=== PATIENT | male | born 1955 | race Caucasian/White ===

== ENCOUNTER 2017-04-21 18:36 | Observation (INO) | payer SELFPAY ==
[2017-04-21] VITALS (7 sets, daily range): BP systolic 135–152; BP diastolic 75–92; PULSE 54–76; RESP 16–18; TEMP 98.2–98.8; O2SAT 90–99
[~2017-04-21] VITALS: Ht 175.3 cm; Wt 80.0 kg
[2017-04-21] MEDS ORDERED: SODIUM CHLOR 0.9% 1000 ML INJ 1,000 ML IV ONE (18:49)
[2017-04-21] MEDS ORDERED: AMLO5 PO (18:55)
[2017-04-21] MEDS ORDERED: ONDANSETRON HCL 4 MG/2 ML VIAL IVP ONE (19:00)
[2017-04-21] MEDS: SODIUM CHLORIDE 0.9% FLUSH 10 ML FLUSH IVF PRN ×2 (19:14→21:17)
--- NOTE | 2017-04-21 19:28 | PD ---
HPI Chief Complaint: Altered Mental Status Time Seen by Provider: 18:48 Travel History International Travel<30 days: No Contact w/Intl Traveler<30days: No Traveled to known affect area: No History of Present Illness HPI 61-year-old male from [place], brought in by EMS status post episode of unresponsiveness with hypoxia. Patient is currently in the process of bringing large vessel from [facility] with a couple of his friends. It is reported that he flew down from [place] 2 days ago and has been going ever since trying to get the boat [place] of the on[place]. Patient required 3 doses of 0.4 mg Narcan 2 bringing him back. It was noted that he had O2 sats in the 80s upon EMS arrival at the scene. Patient now satting well, is arousable and alert and oriented. He is complaining of no pain or shortness of breath. Patient does admit to using cocaine. It is questionable whether he has been using any type of narcotic. Patient takes lisinopril for hypertension. He also is reported to take an anti-inflammatory for his left shoulder, according to his friends. He has no known drug allergies. [facility] Past Medical History Cardiovascular Problems: Yes (HTN) Diminished Hearing: No Hypertension: Yes Immunizations Current: No Tetanus Vaccination: Unknown Influenza Vaccination: No Past Surgical History Surgical History: No Previous Surgery Social History Alcohol Use: Yes Tobacco Use: No Substance Use: Yes (COCCAINE ) Allergies-Medications (Allergen,Severity, Reaction): Coded Allergies: No Known Allergies (Unverified , 04/21/17) Reported Meds & Prescriptions Reported Meds & Active Scripts Active Reported Norvasc (Amlodipine Besylate) 5 Mg Tab 5 Mg PO DAILY Review of Systems ROS Limitations: Altered Mental Status Except as stated in HPI: all other systems reviewed are Neg General / Constitutional: No: Fever Eyes: No: Visual changes HENT: No: Headaches Cardiovascular: No: Chest Pain or Discomfort Respiratory: No: Shortness of Breath Gastrointestinal: No: Nausea, Vomiting, Abdominal Pain Genitourinary: No: Dysuria Musculoskeletal: No: Pain Skin: No Rash Neurologic: No: Weakness Psychiatric: No: Depression Endocrine: No: Polydipsia Hematologic/Lymphatic: No: Easy Bruising Physical Exam Narrative GENERAL: Patient appears somewhat obtunded but arousable to verbal stimuli. Answers questions appropriately. He appears in no obvious distress. SKIN: Warm and dry. Normal color. Normal turgor. No diaphoresis. HEAD: Atraumatic. Normocephalic. EYES: Pupils equal and round. No scleral icterus. No injection or drainage. ENT: No nasal bleeding or discharge. Mucous membranes pink and moist. Pharynx is clear. Airway is patent. NECK: Trachea midline. Supple and nontender. CARDIOVASCULAR: Regular rate and rhythm. No murmurs gallops or rubs appreciated. RESPIRATORY: No accessory muscle use. Clear to auscultation. Breath sounds equal bilaterally. GASTROINTESTINAL: Abdomen soft, non-tender, nondistended. Hepatic and splenic margins not palpable. MUSCULOSKELETAL: Extremities without clubbing, cyanosis, or edema. No obvious deformities. NEUROLOGICAL: Awake and alert. No obvious cranial nerve deficits. Motor grossly within normal limits. Five out of 5 muscle strength in the arms and legs. Normal speech. PSYCHIATRIC: Appropriate mood and affect; insight and judgment normal. Data Data Last Documented VS Vital Signs Date Time Temp Pulse Resp B/P (MAP) Pulse Ox O2 Delivery O2 Flow Rate FiO2 04/21/17 20:39 95 Nasal Cannula 4.00 04/21/17 20:37 04/21/17 19:45 74 16 04/21/17 18:46 98.2 Orders Orders Electrocardiogram (04/21/17 18:49) Complete Blood Count With Diff (04/21/17 18:49) Comprehensive Metabolic Panel (04/21/17 18:49) Prothrombin Time / Inr (Pt) (04/21/17 18:49) Act Partial Throm Time (Ptt) (04/21/17 18:49) Osmolality,Serum (04/21/17 18:49) Urinalysis - C+S If Indicated (04/21/17 18:49) Chest, Single Ap (04/21/17 18:49) Ct Brain W/O Iv Contrast(Rout) (04/21/17 18:49) Iv Access Insert/Monitor (04/21/17 18:49) Cath For Specimen (04/21/17 18:49) Ecg Monitoring (04/21/17 18:49) Oximetry (04/21/17 18:49) Oxygen Administration (04/21/17 18:49) Ondansetron Inj (Zofran Inj) (04/21/17 19:00) Sodium Chloride 0.9% Flush (Ns Flush) (04/21/17 19:00) Sodium Chlor 0.9% 1000 Ml Inj (Ns 1000 M (04/21/17 18:49) Drug Screen, Random Urine (04/21/17 18:49) Alcohol (Ethanol) (04/21/17 18:49) Salicylates (Aspirin) (04/21/17 18:49) Tylenol (Acetaminophen) (04/21/17 18:49) Magnesium (Mg) (04/21/17 18:49) Ckmb (Isoenzyme) Profile (04/21/17 18:49) Troponin I (04/21/17 18:49) CKMB (04/21/17 19:33) CKMB% (04/21/17 19:33) Potassium Chlor 20 Meq Premix (Kcl 20 Me (04/21/17 20:30) Labs Laboratory Tests Test 04/21/17 19:33 04/21/17 20:00 White Blood Count 5.8 TH/MM3 Red Blood Count 4.53 MIL/MM3 Hemoglobin 14.7 GM/DL Hematocrit 42.8 % Mean Corpuscular Volume 94.4 FL Mean Corpuscular Hemoglobin 32.5 PG Mean Corpuscular Hemoglobin Concent 34.5 % Red Cell Distribution Width 12.4 % Platelet Count 246 TH/MM3 Mean Platelet Volume 6.7 FL Neutrophils (%) (Auto) 56.3 % Lymphocytes (%) (Auto) 31.3 % Monocytes (%) (Auto) 10.4 % Eosinophils (%) (Auto) 1.2 % Basophils (%) (Auto) 0.8 % Neutrophils # (Auto) 3.2 TH/MM3 Lymphocytes # (Auto) 1.8 TH/MM3 Monocytes # (Auto) 0.6 TH/MM3 Eosinophils # (Auto) 0.1 TH/MM3 Basophils # (Auto) 0.0 TH/MM3 CBC Comment DIFF FINAL Differential Comment Prothrombin Time 10.6 SEC Prothromb Time International Ratio 1.0 RATIO Activated Partial Thromboplast Time 24.7 SEC Blood Urea Nitrogen 12 MG/DL Creatinine 1.02 MG/DL Random Glucose 128 MG/DL Total Protein 7.0 GM/DL Albumin 4.1 GM/DL Calcium Level 7.7 MG/DL Magnesium Level 2.0 MG/DL Alkaline Phosphatase 55 U/L Aspartate Amino Transf (AST/SGOT) 28 U/L Alanine Aminotransferase (ALT/SGPT) 37 U/L Total Bilirubin 0.5 MG/DL Sodium Level 136 MEQ/L Potassium Level 3.0 MEQ/L Chloride Level 103 MEQ/L Carbon Dioxide Level 22.8 MEQ/L Anion Gap 10 MEQ/L Estimat Glomerular Filtration Rate 74 ML/MIN Serum Osmolality 331 MOSM/KG Total Creatine Kinase 190 U/L Creatine Kinase MB 1.6 NG/ML Troponin I LESS THAN 0.02 NG/ML Salicylates Level LESS THAN 1.7 MG/DL Acetaminophen Level LESS THAN 2.0 MCG/ML Ethyl Alcohol Level 184 MG/DL Urine Color LIGHT-YELLOW Urine Turbidity CLEAR Urine pH 5.5 Urine Specific [place] 1.009 Urine Protein NEG mg/dL Urine Glucose (UA) NEG mg/dL Urine Ketones NEG mg/dL Urine Occult Blood NEG Urine Nitrite NEG Urine Bilirubin NEG Urine Urobilinogen LESS THAN 2.0 MG/DL Urine Leukocyte Esterase NEG Urine RBC LESS THAN 1 /hpf Urine WBC LESS THAN 1 /hpf Urine Mucus FEW /lpf Microscopic Urinalysis Comment CULT NOT INDICATED Urine Opiates Screen NEG Urine Barbiturates Screen NEG Urine Amphetamines Screen NEG Urine Benzodiazepines Screen NEG Urine Cocaine Screen POS Urine Cannabinoids Screen NEG MDM Medical Decision Making Medical Screen Exam Complete: Yes Emergency Medical Condition: Yes Differential Diagnosis Possible narcotic overdose. Illicit drug use. Cardiac syndrome. Syncope. Electrolyte imbalance. Dehydration. Narrative Course Patient is medically stable at time of exam. EKG is performed showing a normal sinus rhythm with a prolonged QT interval of 453 ms. There are no significant ST changes noted. Labs ordered including CBC, CMP, urine drug screen, magnesium, serum osmolality , PT PTT and INR, troponin, CK-MB, serum alcohol, acetaminophen level, salicylate level, and urinalysis. Chest x-ray and CT of the brain is ordered. IV access is obtained, and the patient is given 4 mg Zofran IV as well as 1000 mL of normal saline bolus. 0.4 mg Narcan IV is ordered on a when necessary basis. CBC is unremarkable. Chemistries remarkable for potassium of 3.0, GFR 74 follow BUN creatinine are 12 and 1.02 respectively. Random glucose is 128, serum osmolality is 331, calcium is low at 7.7. First troponin is less than 0.2 with a normal CK-MB. Toxicology shows less than 1.7 salicylate, urine opiates are negative, positive for cocaine, pulse 184. Urinalysis is otherwise negative. Patient is discussed with Dr. Shaffer who feels the patient deserves admission for observation. Call was placed to the hospitalist and the patient was discussed. Dr. Eaton agreed to admit the patient to observation overnight. Diagnosis Primary Impression: Episode of unresponsiveness Additional Impression: Cocaine use Admitting Information Admitting Physician Requests: Observation Condition: Stable Orlando Vela Apr 21, 2017 19:27
--- NOTE | 2017-04-21 19:37 | RADRPT ---
EXAM DATE/TIME: 04/21/2017 19:06 [facility] COMPARISON: No previous studies available for comparison. INDICATIONS : Syncope MEDICAL HISTORY : None. SURGICAL HISTORY : None. ENCOUNTER: Initial ACUITY: 1 day PAIN SCORE: Non-responsive. LOCATION: chest FINDINGS: A single view of the chest demonstrates the lungs to be symmetrically aerated without evidence of mas s, infiltrate or effusion. Minimal atelectatic changes above the left hemidiaphragm laterally. The c ardiomediastinal contours are unremarkable. Osseous structures are intact. CONCLUSION: 1. Minimal atelectatic changes above the left hemidiaphragm laterally. 2. Otherwise, no acute cardiopulmonary process. Sameer Bhakta MD on April 21, 2017 at 19:35 Board Certified Radiologist. This report was verified electronically.
[2017-04-21 19:41] LABS: AUTOMATED NEUTROPHIL # 3.2 TH/MM3 (1.8-7.7); BASOPHIL % 0.8 % (0.0-2.0); EOSINOPHIL # 0.1 TH/MM3 (0-0.4); EOSINOPHIL % 1.2 % (0.0-4.0); HEMATOCRIT 42.8 % (39.0-51.0); HEMO FLAGS DIFF FINAL; LYMPH % 31.3 % (9.0-44.0); LYMPHOCYTE # 1.8 TH/MM3 (1.0-4.8); MEAN CELL VOLUME 94.4 FL (80.0-100.0); MEAN CORPUSCULAR HEMOGLOBIN 32.5 PG (27.0-34.0); MEAN CORPUSCULAR HGB CONC 34.5 % (32.0-36.0); MONO % 10.4 % (0.0-8.0); NEUT % 56.3 % (16.0-70.0); PLATELET COUNT 246 TH/MM3 (150-450); RED BLOOD COUNT 4.53 MIL/MM3 (4.50-5.90); RED CELL DISTRIBUTION WIDTH 12.4 % (11.6-17.2); WHITE BLOOD COUNT 5.8 TH/MM3 (4.0-11.0)
[2017-04-21 19:55] LABS: ALT (GPT) 37 U/L (12-78); ANION GAP 10 MEQ/L (5-15); AST (GOT) 28 U/L (15-37); BICARBONATE 22.8 MEQ/L (21.0-32.0); BLOOD UREA NITROGEN 12 MG/DL (7-18); CHLORIDE 103 MEQ/L (98-107); GLOMERULAR FILTRATION RATE 74 ML/MIN (>89); SODIUM (NA) 136 MEQ/L (136-145)
[2017-04-21 19:59] LABS: ALKALINE PHOSPHATASE 55 U/L (45-117); CREATINE KINASE 190 U/L (39-308); TOTAL BILIRUBIN ADULT 0.5 MG/DL (0.2-1.0)
[2017-04-21 20:06] LABS: APTT (PATIENT) 24.7 SEC (24.3-30.1); PROTHROMBIN TIME - PATIENT 10.6 SEC (9.8-11.6)
[2017-04-21 20:13] LABS: ALCOHOL 184 MG/DL (0-5)
[2017-04-21 20:16] LABS: ACETAMINOPHEN LESS THAN 2.0 MCG/ML (10.0-30.0)
[2017-04-21 20:21] LABS: BLOOD, URINE NEG (NEG); COMMENT (UR) CULT NOT INDICATED; CULTURE IF INDICATED CULT NOT INDICATED; GLUCOSE,URINE NEG (NEG); KETONE, URINE NEG (NEG); MUCUS URINE FEW /lpf (OCC); NITRITE,URINE NEG (NEG); PH, URINE 5.5 (5.0-8.5); URINE COLOR LIGHT-YELLOW (YELLW/STRAW)
[2017-04-21 20:25] LABS: CKMB 1.6 NG/ML (0.5-3.6)
[2017-04-21] MEDS ORDERED: POTASSIUM CHLOR 20 MEQ PREMIX 100 ML IV ONE (20:30)
--- NOTE | 2017-04-21 20:35 | RADRPT ---
EXAM DATE/TIME: 04/21/2017 19:59 [facility] COMPARISON: No previous studies available for comparison. INDICATIONS : Confusion with altered mental status. RADIATION DOSE: 56.35 CTDIvol (mGy) MEDICAL HISTORY : Hypertension. Coccaine abuse. SURGICAL HISTORY : None. ENCOUNTER: Initial ACUITY: 1 day PAIN SCALE: Non-responsive LOCATION: Bilateral cranial TECHNIQUE: Multiple contiguous axial images were obtained of the head. Using automated exposure control and adj ustment of the mA and/or kV according to patient size, radiation dose was kept as low as reasonably a chievable to obtain optimal diagnostic quality images. DICOM format image data is available electro nically for review and comparison. FINDINGS: CEREBRUM: The ventricles are normal for age. No evidence of midline shift, mass lesion, hemorrhage or acute in farction. No extra-axial fluid collections are seen. POSTERIOR FOSSA: The cerebellum and brainstem are intact. The 4th ventricle is midline. The cerebellopontine angle i s unremarkable. EXTRACRANIAL: The visualized portion of the orbits is intact. Mild mucoperiosteal thickening in the mid ethmoid air cells on the right SKULL: The calvaria is intact. No evidence of skull fracture. CONCLUSION: 1. Mild chronic sinusitis in the right mid-ethmoids. 2. Otherwise negative. Sameer Bhakta MD on April 21, 2017 at 20:32 Board Certified Radiologist. This report was verified electronically.
[2017-04-21] MEDS ORDERED: SODIUM CHLORIDE 0.9% FLUSH 10 ML FLUSH IV FLUSH PRN (20:45)
[2017-04-21] MEDS ORDERED: NALOXONE HCL 0.4 MG/ML AMP IV PRN (20:45)
[2017-04-21] MEDS ORDERED: SODIUM CHLORIDE 0.9% FLUSH 10 ML FLUSH IV FLUSH SCH (21:00)
[2017-04-21] MEDS ORDERED: ONDANSETRON HCL 4 MG/2 ML VIAL IV PUSH ONE (21:15)
--- NOTE | 2017-04-22 02:13 | HHI.HP ---
HPI Service [facility] Primary Care Physician Unknown Admission Diagnosis Episode Unresponsiveness/+Cocaine Diagnoses: Travel History International Travel<30 Days: No Contact w/Intl Traveler <30 Da: No Traveled to Known Affected Are: No History of Present Illness History from patient, ER physician communication, reviewed of medical records. Patient reports his last he does not remember the events. He states he missed passed out. He stated he was coming here from [facility] to move his boat away from the upcoming [place]. He states that he and his friends were driving the boat pretty much all day and night long without food or rest. He stated he did not have his breakfast. However they did drink large amount of beer and also snorted cocaine to stay awake for the return he. He stated he must have slept for about 2 hours. He states he was then sitting with his friends to go to dinner later and as he was sitting somehow he has passed out. So his friends called 911. Per ER report, as EMS came, patient was given Narcan and became awake and alert. Patient's urine toxicology did not reveal any evidence of opiates. Patient himself also denies any opiates abuse. However he cannot be sure whether his cocaine is tented with other chemicals because he buys it from the streets. Apart from the above episodes, patient denies any recent fevers/nausea/vomiting/ diarrhea/urinary burning or pain on urination. He denies any hematemesis/hematochezia/melena/hematuria. Denies any chest pain/palpitations/shortness of breath/focal weakness/syncopal episodes. He also denies any premonitory symptoms prior to today's syncopal episodes. Review of Systems Except as stated in HPI: all other systems reviewed are Neg Past Family Social History Past Medical History htn Past Surgical History left rotator cuff sx Allergies: Coded Allergies: No Known Allergies (Unverified , 04/21/17) Family History None that he knows of Social History never smoked cigarettes drink about 4-5 beers a day, but doubles on weekends cocaine, no iv drugs, adderall Physical Exam Vital Signs Vital Signs Date Time Temp Pulse Resp B/P (MAP) Pulse Ox O2 Delivery O2 Flow Rate FiO2 04/21/17 23:24 98.8 58 18 135/75 (95) 96 04/21/17 22:42 99 Nasal Cannula 4.00 04/21/17 22:23 04/21/17 21:23 54 18 136/77 (96) 95 Nasal Cannula 2.00 04/21/17 20:39 95 Nasal Cannula 4.00 04/21/17 20:37 90 Nasal Cannula 2.00 04/21/17 19:45 74 16 152/92 (112) Room Air 04/21/17 19:17 98 Nasal Cannula 2.00 04/21/17 19:17 98 Nasal Cannula 2.00 04/21/17 18:46 98.2 76 18 152/92 (112) 96 Physical Exam GENERAL: This is a well-nourished, well-developed patient, in no apparent distress. SKIN: No rashes, ecchymoses or lesions. Cool and dry. HEAD: Atraumatic. Normocephalic. No temporal or scalp tenderness. EYES. No scleral icterus. No injection or drainage. ENT: Throat without erythema, tonsillar hypertrophy or exudate. Uvula midline. Airway patent. NECK: Trachea midline. No JVD CARDIOVASCULAR: Regular rate and rhythm without murmurs, gallops, or rubs. RESPIRATORY: Clear to auscultation. Breath sounds equal bilaterally. No wheezes , rales, or rhonchi. GASTROINTESTINAL: Abdomen soft, non-tender, nondistended. No guarding. MUSCULOSKELETAL: Extremities without clubbing, cyanosis, or edema. No calf tenderness. NEUROLOGICAL: Awake and alert. Cranial nerves II through XII intact. Motor and sensory grossly within normal limits. Normal speech. Laboratory Laboratory Tests Test 04/21/17 19:33 04/21/17 20:00 White Blood Count 5.8 Red Blood Count 4.53 Hemoglobin 14.7 Hematocrit 42.8 Mean Corpuscular Volume 94.4 Mean Corpuscular Hemoglobin 32.5 Mean Corpuscular Hemoglobin Concent 34.5 Red Cell Distribution Width 12.4 Platelet Count 246 Mean Platelet Volume 6.7 Neutrophils (%) (Auto) 56.3 Lymphocytes (%) (Auto) 31.3 Monocytes (%) (Auto) 10.4 Eosinophils (%) (Auto) 1.2 Basophils (%) (Auto) 0.8 Neutrophils # (Auto) 3.2 Lymphocytes # (Auto) 1.8 Monocytes # (Auto) 0.6 Eosinophils # (Auto) 0.1 Basophils # (Auto) 0.0 CBC Comment DIFF FINAL Differential Comment Prothrombin Time 10.6 Prothromb Time International Ratio 1.0 Activated Partial Thromboplast Time 24.7 Blood Urea Nitrogen 12 Creatinine 1.02 Random Glucose 128 Total Protein 7.0 Albumin 4.1 Calcium Level 7.7 Magnesium Level 2.0 Alkaline Phosphatase 55 Aspartate Amino Transf (AST/SGOT) 28 Alanine Aminotransferase (ALT/SGPT) 37 Total Bilirubin 0.5 Sodium Level 136 Potassium Level 3.0 Chloride Level 103 Carbon Dioxide Level 22.8 Anion Gap 10 Estimat Glomerular Filtration Rate 74 Serum Osmolality 331 Total Creatine Kinase 190 Creatine Kinase MB 1.6 Troponin I LESS THAN 0.02 Salicylates Level LESS THAN 1.7 Acetaminophen Level LESS THAN 2.0 Ethyl Alcohol Level 184 Urine Color LIGHT-YELLOW Urine Turbidity CLEAR Urine pH 5.5 Urine Specific [place] 1.009 Urine Protein NEG Urine Glucose (UA) NEG Urine Ketones NEG Urine Occult Blood NEG Urine Nitrite NEG Urine Bilirubin NEG Urine Urobilinogen LESS THAN 2.0 Urine Leukocyte Esterase NEG Urine RBC LESS THAN 1 Urine WBC LESS THAN 1 Urine Mucus FEW Microscopic Urinalysis Comment CULT NOT INDICATED Urine Opiates Screen NEG Urine Barbiturates Screen NEG Urine Amphetamines Screen NEG Urine Benzodiazepines Screen NEG Urine Cocaine Screen POS Urine Cannabinoids Screen NEG Result Diagram: 04/21/17193204/21/171932 Imaging Last [address] 04/21/171848 Signed Impressions: Service Date/Time: April 19:59 - CONCLUSION: 1. Mild chronic sinusitis in the right mid-ethmoids. 2. Otherwise negative. Sameer Bhakta MD Chest X-Ray 04/21/171848 Signed Impressions: Service Date/Time: April 19:06 - CONCLUSION: 1. Minimal atelectatic changes above the left hemidiaphragm laterally. 2. Otherwise, no acute cardiopulmonary process. Sameer Bhakta MD [place] VTE Risk Assessment Caprini VTE Risk Assessment: No/Low Risk (score <= 1) Caprini Risk Assessment Model Point Value = 1 Point Value = 2 Point Value = 3 Point Value = 5 Age 41-60 Minor surgery BMI > 25 kg/m2 Swollen legs Varicose veins or History of unexplained or recurrent spontaneous Oral contraceptives or hormone replacement Sepsis (< 1 month) Serious lung disease, including pneumonia (< 1 month) Abnormal pulmonary function Acute myocardial infarction Congestive heart failure (< 1 month) History of inflammatory bowel disease Medical patient at bed rest Age 61-74 Arthroscopic surgery Major open surgery (> 45 min) Laparoscopic surgery (> 45 min) Malignancy Confined to bed (> 72 hours) Immobilizing plaster cast Central venous access Age >= 75 History of VTE Family history of VTE Factor V Leiden Prothrombin [id number] Lupus anticoagulant Anticardiolipin antibodies Elevated serum homocysteine Heparin-induced thrombocytopenia Other congenital or acquired thrombophilia Stroke (< 1 month) Elective arthroplasty Hip, pelvis, or leg fracture Acute spinal cord injury (< 1 month) Prophylaxis Regimen Total Risk Factor Score Risk Level Prophylaxis Regimen 0-1 Low Early ambulation 2 Moderate Order ONE of the following: *Sequential Compression Device (SCD) *Heparin 5000 units SQ BID 3-4 Higher Order ONE of the following medications: *Heparin 5000 units SQ TID *Enoxaparin/Lovenox 40 mg SQ daily (WT < 150 kg, CrCl > 30 mL/min) *Enoxaparin/Lovenox 30 mg SQ daily (WT < 150 kg, CrCl > 10-29 mL/min) *Enoxaparin/Lovenox 30 mg SQ BID (WT < 150 kg, CrCl > 30 mL/min) AND/OR *Sequential Compression Device (SCD) 5 or more Highest Order ONE of the following medications: *Heparin 5000 units SQ TID (Preferred with Epidurals) *Enoxaparin/Lovenox 40 mg SQ daily (WT < 150 kg, CrCl > 30 mL/min) *Enoxaparin/Lovenox 30 mg SQ daily (WT < 150 kg, CrCl > 10-29 mL/min) *Enoxaparin/Lovenox 30 mg SQ BID (WT < 150 kg, CrCl > 30 mL/min) AND *Sequential Compression Device (SCD) Assessment and Plan Assessment and Plan Impression: Syncopal episode likely secondary to alcohol intoxication combined with substance abuse. Hypokalemia Tachycardia- likely secondary to cocaine abuse Hypoxia on admission- from intoxication Plan: Serial cardiac enzymes and EKGs. We'll monitor blood pressure overnight for evidence of hypotension. Check orthostatics. Replace potassium. We'll repeat in a.m. Monitor for oxygen saturation. If patient remains stable, is able to eat, no longer vomiting must, by the morning patient will likely be discharged. Patient is counseled in detail regarding alcohol abuse, and substance abuse. Discussed Condition With Patient's, ER provider, and nursing staff Ha Eaton MD Apr 22, 2017 02:13
[2017-04-22 04:33] VITALS: BP 143/79; PULSE 74; RESP 18; TEMP 98.2; O2SAT 97
[2017-04-22 04:54] VITALS: PULSE 57; PULSE 65
--- NOTE | 2017-04-22 06:42 | HHI.DCPOC ---
Discharge Care Plan Diagnosis: (1) Cocaine use (2) Episode of unresponsiveness Goals to Promote Your Health * To prevent worsening of your condition and complications * To maintain your health at the optimal level Directions to Meet Your Goals Take your medications as prescribed Follow your dietary instruction Follow activity as directed Keep your appointments as scheduled Take your immunizations and boosters as scheduled If your symptoms worsen call your PCP, if no PCP go to Urgent Care Center or Emergency Room Smoking is Dangerous to Your Health. Avoid second hand smoke Call the 24-hour hour crisis hotline for domestic abuse at Ha Eaton MD Apr 22, 2017 06:42
[2017-04-22 07:45] VITALS: BP 175/94; PULSE 72; RESP 16; TEMP 97.9; O2SAT 98
[2017-04-22 08:17] LABS: BASOPHIL % 0.5 % (0.0-2.0); EOSINOPHIL # 0.1 TH/MM3 (0-0.4); EOSINOPHIL % 0.9 % (0.0-4.0); HEMATOCRIT 40.8 % (39.0-51.0); HEMO FLAGS DIFF FINAL; LYMPH % 14.7 % (9.0-44.0); MEAN CELL VOLUME 93.9 FL (80.0-100.0); MEAN CORPUSCULAR HEMOGLOBIN 33.2 PG (27.0-34.0); MEAN CORPUSCULAR HGB CONC 35.3 % (32.0-36.0); MONO % 8.6 % (0.0-8.0); NEUT % 75.3 % (16.0-70.0); PLATELET COUNT 234 TH/MM3 (150-450); RED BLOOD COUNT 4.34 MIL/MM3 (4.50-5.90); RED CELL DISTRIBUTION WIDTH 12.3 % (11.6-17.2); WHITE BLOOD COUNT 6.6 TH/MM3 (4.0-11.0)
[2017-04-22 08:47] LABS: BICARBONATE 24.5 MEQ/L (21.0-32.0); POTASSIUM 3.6 MEQ/L (3.5-5.1)
--- NOTE | 2017-04-22 11:41 | EKG ---
Date Performed: 04/21/2017 Time Performed: 19:08:20 PTAGE: 61 years EKG: Sinus rhythm POSSIBLE PROLONGED QT INTERVAL ABNORMAL ECG NO PREVIOUS TRACING DOCTOR: Colt Kothari Interpretating Date/Time 04/22/2017 11:39:23
== END 2017-04-22 08:55 | disposition home or self-care (01) ==
LOC: NEPC 18:36 → NEDA 20:56 → NEPHCDU 22:44
PROVIDERS: ADMIT Hospitalist; ATTEND Hospitalist
DX: F10.129 Alcohol abuse with intoxication, unspecified (principal); F14.10 Cocaine abuse, uncomplicated; R55 Syncope and collapse; R09.02 Hypoxemia; I10 Essential (primary) hypertension; E87.6 Hypokalemia; R00.0 Tachycardia, unspecified
CPT/HCPCS: 70450; 71010; 80048; 80053; 80307; 81001; 82550; 82552; 83735; 83930; 84484; 85025; 85610; 85730; 93005; 96361; 96365; 96366; 96375; 96376; 99285; G0378; J2405; J3480; J7030